=== PATIENT | male | born 1985 | race American Indian/Alaskan Native ===

== ENCOUNTER 2020-12-14 11:57 | Emergency (ER) | payer OTHER ==
[2020-12-14] MEDS ORDERED: Diphtheria,Pertussis(Acell),Tetanus Vaccine 0.5 ML Syringe IM ONE (12:50)
--- NOTE | 2020-12-14 12:55 | EDM.PDOC ---
ED HPI GENERAL MEDICAL PROBLEM - General Chief Complaint: Upper Extremity Injury/Pain Stated Complaint: LACERATED FINGER Time Seen by Provider: 12/14/20 12:45 Source of Information: Reports: Patient, RN, RN Notes Reviewed History Limitations: Reports: No Limitations - History of Present Illness INITIAL COMMENTS - FREE TEXT/NARRATIVE: Sridhar is a 35 y/o male with a history of DM Type II who presents to the ED via personal vehicle with complaints of a laceration to his right medial, distal thumb. The patient reports he was peeling potatoes with a new potato slicer and accidentally scraped his distal thumb with the device. He notes this injury occurred approximately one hour prior. He states he is unable to get the bleeding to stop so he presented here. He states he is unsure of his tetanus vaccine status. Right Finger-Thumb Pain Score (Numeric/FACES): 8 - Related Data Allergies Allergy/AdvReac Type Severity Reaction Status Date / Time No Known Allergies Allergy Verified 12/14/20 12:15 Home Meds: Home Meds Aspirin [Aspirin EC] 81 mg PO DAILY 07/26/20 [History] Simvastatin [Zocor] 10 mg PO BEDTIME 07/26/20 [History] lisinopriL [Lisinopril] 10 mg PO DAILY 07/26/20 [History] metFORMIN [Glucophage] 500 mg PO BIDMEALS 07/26/20 [History] Insulin Detemir [Levemir] 0 unit SUBCUT DAILY 12/14/20 [History] Past Medical History HEENT History: Reports: Impaired Vision Cardiovascular History: Reports: High Cholesterol, Hypertension Respiratory History: Reports: None Endocrine/Metabolic History: Reports: Diabetes, Type II, Obesity/BMI 30+ - Infectious Disease History Infectious Disease History: Reports: Chicken Pox, Novel Coronavirus - Past Surgical History Head Surgeries/Procedures: Reports: None HEENT Surgical History: Reports: None Cardiovascular Surgical History: Reports: None Endocrine Surgical History: Reports: None Social & Family History - Family History Family Medical History: No Pertinent Family History - Tobacco Use Tobacco Use Status *Q: Never Tobacco User - Caffeine Use Caffeine Use: Reports: Soda - Recreational Drug Use Recreational Drug Use: No Review of Systems - Review of Systems Review Of Systems: Comprehensive ROS is negative, except as noted in HPI. ED EXAM, GENERAL - Physical Exam Exam: See Below Exam Limited By: No Limitations General Appearance: Alert, No Apparent Distress, Obese Eye Exam: Bilateral Eye: EOMI, Normal Inspection Ears: Normal External Exam, Hearing Grossly Normal Nose: Normal Inspection, Normal Mucosa, No Blood Throat/Mouth: Normal Inspection, Normal Lips Head: Atraumatic, Normocephalic Neck: Normal Inspection, Full Range of Motion Respiratory/Chest: No Respiratory Distress, Lungs Clear, Normal Breath Sounds, No Accessory Muscle Use, Chest Non-Tender Cardiovascular: Normal Peripheral Pulses, Regular Rate, Rhythm, No Gallop, No JVD, No Murmur, No Rub Peripheral Pulses: 2+: Radial (L), Radial (R) GI/Abdominal: Normal Bowel Sounds, Soft Back Exam: Normal Inspection, Full Range of Motion Extremities: Arm Pain (To shear laceration on right medial, distal first digit; No nail or tendon involvement ) Neurological: Alert, Oriented, CN II-XII Intact, Normal Cognition, Normal Gait, No Motor/Sensory Deficits Psychiatric: Normal Affect, Normal Mood Skin Exam: Warm, Dry, Normal Color, No Rash, Wound/Incision (1cm x 0.5cm shear laceration to right medial distal first digit) Lymphatic: No Adenopathy Course - Vital Signs Last Recorded V/S: Last Vital Signs Temp 97.7 F 12/14/20 12:11 Pulse 103 H 12/14/20 12:11 Resp 16 12/14/20 12:11 BP 126/68 12/14/20 12:11 Pulse Ox 94 L 12/14/20 12:11 - Orders/Labs/Meds Meds: Medications Discontinued Medications Generic Name Dose Route Start Last Admin Trade Name Freq PRN Reason Stop Dose Admin Diphtheria/Tetanus/Acell Pertussis 0.5 ml 12/14/20 12:50 12/14/20 12:56 Diphtheria,Pertussis(Acell),Tetanus Vaccine 0.5 Ml Syringe IM 12/14/20 12:51 0.5 ml .ONCE ONE Administration - Re-Assessments/Exams Free Text/Narrative Re-Assessment/Exam: 12/14/20 Pressure dressing applied to distal finger, bleeding stopped without compl ication. Wound not appropriate for suturing given shearing mechanism of injury. Boostrix administered. Wound care, as well as red flag signs and symptoms which would warrant immediate reevaluation, reviewed. Patient verbalized understanding and agreement with the plan of care. Departure - Departure Time of Disposition: 13:05 Disposition: Home, Self-Care 01 Condition: Good Clinical Impression: Laceration of right thumb Qualifiers: Encounter type: initial encounter Damage to nail status: without damage Foreign body presence: without foreign body Qualified Code(s): S61.011A - Laceration without foreign body of right thumb without damage to nail, initial encounter - Discharge Information *PRESCRIPTION DRUG MONITORING PROGRAM REVIEWED*: Not Applicable *COPY OF PRESCRIPTION DRUG MONITORING REPORT IN PATIENT JOVANY: Not Applicable Instructions: Laceration Care, Adult Forms: ED Department Discharge Additional Instructions: 1.) Keep gauze dressing in place until tomorrow morning. 2.) You may apply a BandAid to the wound following removal of the gauze. 3.) Keep wound clean and dry. 4.) Monitor for signs of infection, including increased redness, pain, swelling, or white/tobias drainage.
== END 2020-12-14 13:19 | disposition home or self-care (01) ==
LOC: DL.ED 11:57
DX: S61.011A Laceration without foreign body of right thumb without damage to nail, initial encounter (principal); E78.00 Pure hypercholesterolemia, unspecified; I10 Essential (primary) hypertension; E11.9 Type 2 diabetes mellitus without complications; E66.9 Obesity, unspecified; Z68.44 Body mass index [BMI] 60.0-69.9, adult; Z23 Encounter for immunization; Z86.16 Personal history of COVID-19; Z79.82 Long term (current) use of aspirin; Z79.4 Long term (current) use of insulin; Z79.899 Other long term (current) drug therapy; W26.8XXA Contact with other sharp object(s), not elsewhere classified, initial encounter
CPT/HCPCS: 90471; 90715; 99282